=== PATIENT | male | born 1985 | race Two or more races ===

== ENCOUNTER 2024-03-30 12:30 | Emergency (ER) | payer MEDICAID ==
[~2024-03-30] VITALS: Ht 167.6 cm; Wt 92.0 kg
[2024-03-30 12:41] VITALS: BP 135/82; PULSE 74; O2SAT 98
[2024-03-30] MEDS ORDERED: AMOX-101 PO (14:02)
[2024-03-30] MEDS: ketorolac trometh 30MG/ML vial 30 MG/ML VIAL IM ONE (14:14)
[2024-03-30 14:15] VITALS: RESP 14
[2024-03-30] MEDS: HYDROcodone/acetaminophen 5mg/325mg tablet PO ONE (14:15)
[2024-03-30 14:27] VITALS: TEMP 98
== END 2024-03-30 14:29 | disposition home or self-care (01) ==
LOC: ER 12:31
DX: K08.89 Other specified disorders of teeth and supporting structures (principal)
CPT/HCPCS: 96372; 99283; J1885